=== PATIENT | male | born 1970 | race Caucasian/White ===

== ENCOUNTER 2023-06-14 04:17 | Day surgery (SDC) | payer OTHER ==
[2023-06-13 12:23] VITALS: BMI 31.3
[2023-06-14 07:48] VITALS: TEMP 98
[2023-06-14 10:35] VITALS: BP 108/75; PULSE 71; RESP 16
== END 2023-06-14 10:54 | disposition home or self-care (01) ==
LOC: JASU-ENDO 04:17
PROVIDERS: ATTEND Internal Medicine Gastroenterology
PROC: 0DBL8ZX Excision of Transverse Colon, Via Natural or Artificial Opening Endoscopic, Diagnostic (ICD-10-PCS; 2023-06-14)
PROC: 0DBN8ZX Excision of Sigmoid Colon, Via Natural or Artificial Opening Endoscopic, Diagnostic (ICD-10-PCS; principal; 2023-06-14 09:00)
DX: Z12.11 Encounter for screening for malignant neoplasm of colon (principal); D12.5 Benign neoplasm of sigmoid colon; D12.3 Benign neoplasm of transverse colon; K64.8 Other hemorrhoids; Z86.010 Personal history of colon polyps; Z83.718 Family history of other colon polyps
CPT/HCPCS: 88305-TC

== ENCOUNTER 2023-07-19 19:07 | Emergency (ER) | payer OTHER ==
[2023-07-19 19:21] VITALS: BP 169/96; PULSE 85; RESP 18; TEMP 99; BMI 31.3
[2023-07-19] MEDS ORDERED: MECLIZINE HCL 25 MG TABLET (FP) ONE (20:44)
[2023-07-19] MEDS ORDERED: METOCLOPRAMIDE HCL INJECTION 10 MG/2 ML VIAL ONE (20:44)
[2023-07-19] MEDS ORDERED: ACETAMINOPHEN INJECTION 100 ML IVPB ONE (20:44)
[2023-07-19] MEDS: LACTATED RINGERS SOLUTION 1000 ML INFUS.BAG IV ONE (21:07)
[2023-07-19] MEDS: ACETAMINOPHEN 1000 MG/100 ML BAG IVPB ONE (21:07)
[2023-07-19] MEDS: METOCLOPRAMIDE HCL INJECTION 10 MG/2 ML VIAL IVPB ONE (21:07)
[2023-07-19] MEDS: MECLIZINE HCL 25 MG TABLET (FP) PO ONE (21:07)
[2023-07-19 21:11] LABS: BASO % 0.9 % (0-2.0); EOS % 1.2 % (0-4.5); HEMATOCRIT 42.8 % (35.4-49); HEMOGLOBIN 15.2 GM/dL (11.7-16.9); LYMPH % 32.7 % (8-40); MCH 31.4 pg (25.7-33.7); MCHC 35.5 g/dl (32.0-35.9); MEAN CELL VOLUME 88.4 fl (80-96); MEAN PLT VOLUME 6.8 fl (7.5-11.1); MONO % 8.8 % (3.8-10.2); NEUT % 56.4 % (42.8-82.8); PLATELET COUNT 208 10^3/uL (134-434); RBC 4.84 M/mm3 (4.00-5.60); RDW 12.9 % (11.9-15.9); WHITE BLOOD COUNT 6.3 K/mm3 (4.0-10.0)
[2023-07-19 21:39] LABS: CALCIUM 9.4 mg/dL (8.5-10.1)
[2023-07-19 21:40] LABS: BLOOD UREA NITROGEN 17.9 mg/dL (7-18); MAGNESIUM 2.3 mg/dL (1.8-2.4)
[2023-07-19 21:43] LABS: CREATININE 1.1 mg/dL (0.55-1.3)
[2023-07-19 21:44] LABS: BILIRUBIN,TOTAL 0.4 mg/dL (0.2-1); TOT PROT 7.3 g/dl (6.4-8.2)
[2023-07-19] MEDS ORDERED: AMOX TR/POT CLAV 875MG/125MG TABLETS (FP) ONE (23:16)
[2023-07-19] MEDS: AMOX TR/POT CLAV 875MG/125MG TABLETS (FP) PO ONE (23:27)
== END 2023-07-19 23:27 | disposition home or self-care (01) ==
LOC: JER 19:07
PROC: 3E033NZ Introduction of Analgesics, Hypnotics, Sedatives into Peripheral Vein, Percutaneous Approach (ICD-10-PCS; principal; 2023-07-19)
PROC: 3E033GC Introduction of Other Therapeutic Substance into Peripheral Vein, Percutaneous Approach (ICD-10-PCS; 2023-07-19)
DX: J32.1 Chronic frontal sinusitis (principal); R51.9 Headache, unspecified; R11.0 Nausea
CPT/HCPCS: 36415; 70450-TC; 80053; 83735; 85025; 96374; 96375; 99284-25; J0131